=== PATIENT | female | born 1960 | race American Indian/Alaskan Native ===

== ENCOUNTER 2017-10-17 15:40 | Emergency (ER) | payer OTHER ==
--- NOTE | 2017-10-17 20:51 | Cat Scan Report ---
FINAL REPORT PROCEDURE: CT HEAD/BRAIN WO CON TECHNIQUE: Computerized tomography of the head was performed without contrast material. HISTORY: NUMBNESS TO LEFT ARM COMPARISON: No prior studies are available for comparison. FINDINGS: Skull and scalp: Normal. Paranasal sinuses: Normal. Ventricles and subarachnoid spaces: Normal. Cerebrum: No evidence of hemorrhage, acute infarction or mass . Cerebellum and brainstem: No evidence of hemorrhage, acute infarction or mass. Vasculature: Normal. Comments: None. IMPRESSION: Normal Examination
--- NOTE | 2017-10-17 22:24 | Emergency Department Report ---
Blank Doc - Documentation Documentation: This is a 57-year-old female here complaining of generalized weakness 2 weeks with pressure to the front of her head lasting 3-5 seconds at a time. She says she is having twitching to her left eye and left shoulder pain and numbness that is radiating down her left arm 3 months. Twitch into left eye is within 6 months and she also says she has a knot to her left upper back and shoulder blade that therefore while he is having radiation of pain up to her neck. Patient said that she went to primary care physician and they sent her to the emergency room to be seen due to multiple problems and generalized weakness. Denies any shortness of breath or chest pain. Denies any dizziness. Denies any nausea or vomiting.. Denies any neck pain or stiffness or fever or chills. Assessment Vital signs are stable and she is afebrile Head: Normocephalic, atraumatic Extremity: No clubbing, cyanosis or edema. +2 pulses to all extremities Neurological: No gross focal deficit Musculoskeletal: Full range of motion to all extremities, no joint effusion. No erythema. No joint deformity. Plan CBC, CMP, free T4, TSH, urinalysis and urine test. CT scan of the head was done and no acute findings. Patient will be seen by Ania
[2017-10-17 22:51] LABS: Hematocrit 45.9 % (30.3-42.9); Hemoglobin 15.2 gm/dl (10.1-14.3); Mean Corpuscular HGB Conc 33 % (30-34); Mean Corpuscular Hemoglobin 28 pg (28-32); Mean Corpuscular Volume 85 fl (79-97); Platelet Count 171 K/mm3 (140-440); Red Blood Count 5.41 M/mm3 (3.65-5.03); Red Cell Distribution Width 15.2 % (13.2-15.2)
[2017-10-17 22:55] LABS: Bacteria,Urine 1+ /HPF (Negative); Bilirubin,Urine NEG (Negative); Blood,Urine NEG (Negative); Color,Urine Yellow (Yellow); Mucus,Urine FEW /HPF; Protein,Urine <15 mg/dL mg/dL (Negative); Urobilinogen,Urine < 2.0 mg/dL (<2.0)
[2017-10-17 22:58] LABS: Basophils % (Auto) 0.5 % (0.0-1.8); Eosinophils % (Auto) 0.5 % (0.0-4.3); Lymphocytes % (Auto) 41.2 % (13.4-35.0); Monocytes % (Auto) 6.8 % (0.0-7.3)
[2017-10-17 22:59] LABS: Lymphocytes # (Auto) 2.1 K/mm3 (1.2-5.4); Monocytes # (Auto) 0.4 K/mm3 (0.0-0.8)
[2017-10-17 23:25] LABS: Alanine Aminotransferase 13 units/L (7-56); Albumin 4.3 g/dL (3.9-5); BUN/Creatinine Ratio 10; Blood Urea Nitrogen 8 mg/dL (7-17); Calcium 9.8 mg/dL (8.4-10.2); Hemolysis Index 19
[2017-10-17 23:49] VITALS: BP 126/70
--- NOTE | 2017-10-18 00:18 | Emergency Department Report ---
HPI - General Chief Complaint: Weakness Time Seen by Provider: 10/17/17 22:04 - HPI HPI: 57-year-old female presents to the emergency department with complaint of some intermittent tightness towards the left shoulder and intermittent numbness and her paresthesias down the left arm. On top of this, patient will get some left eye twitching. All this has been going on over the past 2 weeks but it has increased in intensity over the past few days. She denies any vision change, headache, slurred speech, chest pain, fever. She called her primary care physician for an appointment today, Dr. Zain hernandez, but was told to go to the emergency department instead. She denies any tobacco or illicit drug use. She denies any significant past medical history. No recent travel or sick contacts at home. She has not taken anything for her symptoms prior to presentation. ED Past Medical Hx - Past Medical History Previous Medical History?: No - Surgical History Past Surgical History?: Yes Additional Surgical History: MYOMECTOMY - Social History Smoking Status: Never Smoker Substance Use Type: None - Medications Home Medications: Home Medications Medication Instructions Recorded Confirmed Last Taken Type Cyclobenzaprine HCl [Flexeril 5 MG 5 mg PO TID PRN #12 tab 10/18/17 Unknown Rx TAB] Sulfamethoxazole/Trimethoprim 1 each PO BID #10 tablet 10/18/17 Unknown Rx [Bactrim DS TAB] ED Review of Systems ROS: Stated complaint: LEFT SHOULDER/ARM PAIN Other details as noted in HPI Comment: All other systems reviewed and negative Constitutional: denies: chills, fever Eyes: denies: eye pain, eye discharge, vision change Physical Exam - Physical Exam Vital Signs: Vital Signs 10/17/17 10/17/17 15:55 23:47 Temperature 98.6 F Pulse Rate 84 70 Respiratory 16 18 Rate Blood Pressure 130/70 Blood Pressure 126/70 [Right] O2 Sat by Pulse 97 99 Oximetry Physical Exam: GENERAL: The patient is well-developed well-nourished. HENT: Normocephalic. Atraumatic. Patient has moist mucous membranes. EYES: Extraocular motions are intact. Pupils equal reactive to light bilaterally. No nystagmus. NECK: Supple. Trachea is midline. There is some increased tension and/or tot musculature along the paraspinal muscles and along the trapezius muscle. CHEST/LUNGS: Clear to auscultation. There is no respiratory distress noted. HEART/CARDIOVASCULAR: Regular. There is no tachycardia. There is no murmur. ABDOMEN: Abdomen is soft, nontender. Patient has normal bowel sounds. There is no abdominal distention. SKIN: Skin is warm and dry. NEURO: The patient is awake, alert, and oriented. The patient is cooperative. The patient has no focal neurologic deficits. The patient has normal speech and gait. Cranial nerves II through XII grossly intact. MUSCULOSKELETAL: There is no tenderness or deformity. There is no limitation range of motion. There is no evidence of acute injury. Radial pulse +2 over 4 and capillary Refill less than 2 seconds to the affected left upper extremity. ED Course Vital Signs 10/17/17 10/17/17 15:55 23:47 Temperature 98.6 F Pulse Rate 84 70 Respiratory 16 18 Rate Blood Pressure 130/70 Blood Pressure 126/70 [Right] O2 Sat by Pulse 97 99 Oximetry ED Medical Decision Making - Lab Data Result diagrams: 10/17/17 22:38 10/17/17 22:38 - Radiology Data Radiology results: report reviewed PROCEDURE: CT HEAD/BRAIN WO CON TECHNIQUE: Computerized tomography of the head was performed without contrast material. HISTORY: NUMBNESS TO LEFT ARM COMPARISON: No prior studies are available for comparison. FINDINGS: Skull and scalp: Normal. Paranasal sinuses: Normal. Ventricles and subarachnoid spaces: Normal. Cerebrum: No evidence of hemorrhage, acute infarction or mass . Cerebellum and brainstem: No evidence of hemorrhage, acute infarction or mass. Vasculature: Normal. Comments: None. IMPRESSION: Normal Examination Transcribed By: [facility] [place] Dictated By: KRISTIAN PURI Electronically Authenticated By: KRISTIAN PURI Signed Date/Time: 10/17/172047 - Medical Decision Making Patient presents with some tightness around the left upper shoulder, some numbness and/or paresthesias down the left arm and some left eyes/eyelid twitching that has been going on for the past couple weeks. At the time of my examination the patient says that most of the symptoms have resolved but sometimes it is intermittent. She does not have any focal, motor or sensory deficits and her cranial nerves are intact. A CT scan of the head without contrast was done that does not show any bleed, shift, mass or any ischemic changes. Labs are unremarkable including no signs of infection, electrolyte abnormalities, and she has normal thyroid function. Patient does have some tight muscles along the trapezius muscle that could be causing some of her symptoms or there could be some underlying pinched nerve. Vital signs stable throughout ED course. Patient appears safe for discharge home at this time. She will follow-up with her primary care physician and has been given a referral for a local neurologist as well. She will return to the ER with any worsening of her symptoms or any acute distress. - Differential Diagnosis peripheral neuropathy, electrolyte abnormality, hypothyroidism, pinched ner Critical Care Time: No Critical care attestation.: If time is entered above; I have spent that time in minutes in the direct care of this critically ill patient, excluding procedure time. ED Disposition Clinical Impression: Paresthesias, Trapezius muscle spasm, Eyelid twitch Disposition: - TO HOME OR SELFCARE Is pt being admited?: No Condition: Stable Instructions: Paresthesia (ED), Muscle Spasm (ED) Additional Instructions: Please follow-up with your primary care physician in the next few days. I have given you a referral for a local neurologist, Dr. Cross, to follow up regarding the eye eyelid twitching and the intermittent left arm numbness and no paresthesias. Return to the emergency Department with any worsening of your symptoms or any acute distress. You have been prescribed a medication that is sedating and therefore should not be taken prior to driving, working, and responsible for children and in no way should be mixed with alcohol of any quantity. Prescriptions: Cyclobenzaprine HCl [Flexeril 5 MG TAB] 5 mg PO TID PRN #12 tab PRN Reason: Muscle Spasm Sulfamethoxazole/Trimethoprim [Bactrim DS TAB] 1 each PO BID #10 tablet Referrals: ZAIN HERNANDEZ MD [Referring] - 3-5 Days XENA CROSS MD [Staff Physician] - 3-5 Days Time of Disposition: 00:18
== END 2017-10-18 00:25 | disposition home or self-care (01) ==
LOC: ED 15:40
DX: R20.0 Anesthesia of skin (principal); M62.838 Other muscle spasm; H57.8 Other specified disorders of eye and adnexa
CPT/HCPCS: 36415; 70450; 80053; 81001; 83735; 84439; 84443; 84703; 85025; 93005; 93010